=== PATIENT | male | born 1960 | race African-American/Black ===

== ENCOUNTER 2018-11-04 20:12 | Emergency (ER) | payer OTHER ==
--- NOTE | 2018-11-04 20:19 | PDOC ---
Rapid Medical Evaluation Chief Complaint: Edema Time Seen by Provider: 11/04/18 20:16 Medical Evaluation: Allergies Allergy/AdvReac Type Severity Reaction Status Date / Time No Known Allergies Allergy Verified 02/22/14 16:31 11/04/18 20:16 I have performed a brief in-person evaluation of this patient. The patient presents with a chief complaint of: swell to bite site to right forearm over a week ago. Pt unsure what bit him but report swelling has been worsening. Denies fever. pt report he forgot to take his HTN meds today Pertinent physical exam findings: 2cm area of swelling around bite karen to posterior right forearm. no skin erythema. I have ordered the following: nothing The patient will proceed to the ED for further evaluation. Discharge Disposition - Diagnosis Localized swelling of right forearm - Discharge Dispostion Condition at time of disposition: Stable - Referrals - Patient Instructions - Post Discharge Activity
[2018-11-04 20:23] VITALS: BP 167/98; PULSE 92; TEMP 98.9; BMI 26.5
--- NOTE | 2018-11-04 20:51 | PDOC ---
History of Present Illness - General Chief Complaint: Edema Stated Complaint: BITE Time Seen by Provider: 11/04/18 20:16 - History of Present Illness Initial Comments: 11/04/18 20:51 58-year-old male recently returned from vacation from [facility] and [facility] presents for painful erythemic area on his right forearm which is been present for about 10 days. He has no systemic symptoms nausea vomiting headache he feels well only slight discomfort in the area of his right forearm Past History - Past Medical History Allergies/Adverse Reactions: Allergies Allergy/AdvReac Type Severity Reaction Status Date / Time No Known Allergies Allergy Verified 11/04/18 20:16 Home Medications: Ambulatory Orders Lisinopril/Hydrochlorothiazide [Lisinopril-Hctz 20-12.5 mg Tab] 1 each PO DAILY 02/22/14 Amlodipine Besylate [Norvasc -] 10 mg PO DAILY #30 tablet 02/26/14 Aspirin [ASA -] 81 mg PO DAILY #30 tab.chew 02/26/14 Atorvastatin Ca [Lipitor] 40 mg PO HS #30 tablet 02/26/14 Hydrochlorothiazide [Hctz -] 25 mg PO DAILY #30 tablet 02/26/14 Lisinopril [Prinivil] 20 mg PO DAILY #30 tablet 02/26/14 Cephalexin [Keflex] 500 mg PO QID #40 capsule 11/04/18 Sulfamethoxazole/Trimethoprim [Bactrim Ds -] 1 tab PO BID #14 tablet 11/04/18 Anemia: No Asthma: No Cancer: No Cardiac Disorders: No CVA: No COPD: No CHF: No Dementia: No Diabetes: No GI Disorders: No Disorders: No HTN: Yes (on med) Hypercholesterolemia: Yes (on med) Kidney Stones: No Seizures: No Thyroid Disease: No - Surgical History Abdominal Surgery: No Appendectomy: Yes (at age 10) Cardiac Surgery: No Cholecystectomy: No Lung Surgery: No Neurologic Surgery: No Orthopedic Surgery: No - Reproductive History Testicular Surgery: No - Suicide/Smoking/Psychosocial Hx Smoking Status: Yes Smoking History: Current every day smoker Have you smoked in the past 12 months: Yes Number of Cigarettes Smoked Daily: 2 Cigars Per Day: 0 Information on smoking cessation initiated: No 'Breaking Loose' booklet given: 02/22/14 Hx Substance Use Treatment: No Review of Systems - Review of Systems Constitutional: No: Chills, Fever Integumentary: Yes: See HPI *Physical Exam - Vital Signs Last Vital Signs Temp Pulse Resp BP Pulse Ox 98.9 F 92 H 18 167/98 98 11/04/18 20:16 11/04/18 20:16 11/04/18 20:16 11/04/18 20:16 11/04/18 20:16 - Physical Exam Comments: 11/04/18 20:50 There is about a 5 cm circumferential area of erythema with central induration about 2 cm circumferentially and focal area in the middle with fluctuance which was easily expressed with gentle compression. There are diffuse no fluctuance left after expression of fluid. There is about 1 mL of purulent material drained. The area around the central fluctuance is now indurated. There are no gross sensory motor deficits in the upper extremity. Medical Decision Making - Medical Decision Making 11/04/18 20:49 Concern for vibrio is not likely. Patient's had cutaneous abscess for over 10 days. We'll treat with Bactrim and Keflex. Discussed with emergency room attending who is in agreement with the plan. *DC/Admit/Observation/Transfer Diagnosis at time of Disposition: Localized swelling of right forearm, Abscess of forearm, right - Discharge Dispostion Disposition: HOME Condition at time of disposition: Stable Decision to Admit order: No - Prescriptions Prescriptions: Cephalexin [Keflex] 500 mg PO QID #40 capsule Sulfamethoxazole/Trimethoprim [Bactrim Ds -] 1 tab PO BID #14 tablet - Referrals Referrals: Hiram Tello MD [Primary Care Provider] - - Patient Instructions Printed Discharge Instructions: DI for Incision and Drainage of a Skin Abscess , DI for Skin Abscess Additional Instructions: Warm compresses multiple times a day, please take the antibiotics as directed. Tylenol as directed for pain. Return to the Emergency Room in 48 hours for a wound check if symptoms not resolving, sooner if worsening. - Post Discharge Activity
== END 2018-11-04 21:20 | disposition home or self-care (01) ==
LOC: JERFT 20:12
DX: R22.31 Localized swelling, mass and lump, right upper limb (principal); L02.413 Cutaneous abscess of right upper limb; I10 Essential (primary) hypertension; E78.00 Pure hypercholesterolemia, unspecified
CPT/HCPCS: 99281-25